=== PATIENT | male | born 1955 | race African-American/Black ===

== ENCOUNTER 2024-08-04 12:51 | Emergency (ER) | payer MEDICAID, MEDICARE ==
[~2024-08-04] VITALS: Ht 177.8 cm; Wt 75.0 kg
[~2024-08-04 12:51] MED LIST: ASPI-1497 PO
[2024-08-04 12:54] VITALS: BP 166/89; TEMP 98.6; O2SAT 98
[2024-08-04 12:55] VITALS: PULSE 98; RESP 18; O2SAT 100
[2024-08-04] MEDS ORDERED: HYDR28OI2 TP (13:28)
[2024-08-04] MEDS: DIPHENHYDRAMINE 25MG CAPSULE PO ONE (14:07)
== END 2024-08-04 14:12 | disposition home or self-care (01) ==
LOC: ER 12:51
DX: L29.9 Pruritus, unspecified (principal); I10 Essential (primary) hypertension; F12.10 Cannabis abuse, uncomplicated
CPT/HCPCS: 99282; Q0163